=== PATIENT | male | born 1945 | race Caucasian/White ===

== ENCOUNTER 2017-09-08 14:29 | Outpatient (CLI) | payer OTHER | END 2017-09-08 14:31 | disposition home or self-care (01) | LOC: LAB 14:29 | DX: N30.00 Acute cystitis without hematuria (principal) ==

== ENCOUNTER 2017-09-30 15:02 | Outpatient (CLI) | payer OTHER | END 2017-09-30 15:03 | disposition home or self-care (01) | LOC: LAB 15:02 | DX: N30.00 Acute cystitis without hematuria (principal); R82.8 Abnormal findings on cytological and histological examination of urine ==

== ENCOUNTER 2017-10-29 13:15 | Outpatient (CLI) | payer OTHER | END 2017-10-29 13:23 | disposition home or self-care (01) | LOC: LAB 13:15 → RAD 13:15 → LAB 13:23 | DX: N20.1 Calculus of ureter (principal); N30.00 Acute cystitis without hematuria ==

== ENCOUNTER 2017-11-27 14:03 | Outpatient (CLI) | payer OTHER | END 2017-11-27 14:09 | disposition home or self-care (01) | LOC: LAB 14:03 | DX: N30.00 Acute cystitis without hematuria (principal) ==

== ENCOUNTER → 2020-11-09 15:51 | Outpatient (CLI) | payer OTHER | END | disposition home or self-care (01) | LOC: LAB 15:51 | PROVIDERS: ATTEND Urology | DX: N30.00 Acute cystitis without hematuria (principal); B96.29 Other Escherichia coli [E. coli] as the cause of diseases classified elsewhere ==

== ENCOUNTER 2021-02-26 13:57 | Outpatient (CLI) | payer OTHER | END 2021-02-26 14:08 | disposition home or self-care (01) | LOC: MRI 13:57 | DX: G43.009 Migraine without aura, not intractable, without status migrainosus (principal); G31.84 Mild cognitive impairment of uncertain or unknown etiology | CPT/HCPCS: 70551 ==